=== PATIENT | male | born 1995 | race African-American/Black ===

== ENCOUNTER 2016-04-16 11:17 | Day surgery (SDC) | payer OTHER ==
[~2016-04-16 11:17] MED LIST: Buffered Lidocaine 1% SYR 3ML* 3 ML/SYR SYRINGE INTRADERM ONE; Dexamethasone IV* 4 MG/ML 1 ML (4 MG) IV SLOW PU ONE
[2016-04-16] MEDS ORDERED: Dexamethasone IV* 4 MG/ML 1 ML (4 MG) ONE (11:26)
[2016-04-16] MEDS ORDERED: ceFAZolin 2 GM PREMIX (*) 2 GM/50 ML BAG IVPB ONE (11:27)
[2016-04-16] MEDS ORDERED: Midazolam* 1 MG/ML 5 ML VIAL (5 MG) ONE (12:53)
[2016-04-16] MEDS ORDERED: fentaNYL* 50 MCG/ML 2 ML VIAL (100 MCG VIAL) ONE ×2 (12:53→14:17)
[2016-04-16] MEDS ORDERED: Lidocaine 2% PF * 5 ML VIAL ONE (12:58)
[2016-04-16] MEDS ORDERED: Propofol* 10 MG/ML 20 ML BTL IV PUSH ONE (12:58)
[2016-04-16] MEDS ORDERED: Bupivacaine 0.5% SDV PF* 30 ML VIAL ONE (13:00)
[2016-04-16] MEDS ORDERED: Ketorolac INJ* 30 MG/ML 1 ML VIAL ONE (13:05)
[2016-04-16] MEDS ORDERED: PROCHLORPERAZINE INJ 5 MG/ML 2 ML VIAL IV PRN (13:21)
[2016-04-16] MEDS ORDERED: Ondansetron INJ* 2 MG/ML VIAL ONE (13:32)
[2016-04-16] MEDS: fentaNYL* 50 MCG/ML 2 ML VIAL (100 MCG VIAL) IV PRN ×2 (14:19→14:34)
[2016-04-16] MEDS ORDERED: oxyCODONE/Acetamin 5/325 MG* TAB ONE (14:41)
[2016-04-16] MEDS: oxyCODONE/Acetamin 5/325 MG* TAB PO PRN ×2 (14:55→14:57)
[2016-04-16 15:37] VITALS: BP 137/69
--- NOTE | 2016-04-17 12:04 | OP ---
DATE OF OPERATION: 04/16/16 - SDS DATE OF : 89 ATTENDING SURGEON: Dr. Reymundo Worrell. 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 OPERATIVE PROCEDURE: Debridement, synovectomy, and release of flexor hallucis longus tendon at the ankle. DESCRIPTION OF PROCEDURE: The patient was taken to the operating room where an 8 cm longitudinal incision was made centered over the medial malleolus. I dissected down directly on to the FDL tendon, which was subluxed anteriorly. Then through the floor of the FDL tendon sheath, I located the FHL tendon as it coursed behind the medial talus and beneath the sustentaculum. There was a tight band right beneath the medial aspect of the talus, which was released. The tendon itself appeared to be healthy without significant synovitis. There was a protruding and irregular edge to the posterior medial talus at this sheath as well, which was removed with an osteotome. The tendon appeared to track well and freely at this point. We irrigated thoroughly, closing the retinaculum with 2-0 Vicryl sutures, eventually louisa for the skin, and a compression dressing and plaster splint applied. [id number]/[facility] #: [id number] MTDD
== END 2016-04-16 16:28 | disposition home or self-care (01) ==
LOC: OR 11:17
PROVIDERS: ATTEND Orthopaedic Surgery
DX: M65.871 Other synovitis and tenosynovitis, right ankle and foot (principal)
CPT/HCPCS: 88304; 88311; A9270-GY; J0690; J1100; J1885; J2250; J2405; J2704; J3010